=== PATIENT | male | born 1960 | race Caucasian/White ===

== ENCOUNTER 2018-03-11 13:40 | Emergency (ER) | payer BC ==
[~2018-03-11] VITALS: Ht 182.9 cm; Wt 89.0 kg
[2018-03-11 14:29] LABS: HEMOGLOBIN 15.3 G/DL (12.5-16.6); MCH 31.9 PG (29.0-34.0); MCHC 34.8 G/DL (30.0-36.0); MCV 91.7 FL (86-99); PLATELET COUNT 186 K/uL (156-360); RBC DIS.WIDTH-CV 12.3 % (11.8-14.6); RBC DIS.WIDTH-SD 41.5 % (39-53); WHITE BLOOD COUNT 5.4 K/uL (4.1-10.2)
[2018-03-11 14:37] LABS: CHLORIDE 106 mEq/L (99-109); POTASSIUM 4.1 mEq/L (3.7-5.4); SODIUM 140 mEq/L (136-147)
[2018-03-11 14:39] LABS: GLUCOSE 84 mg/dL (70-99)
[2018-03-11 14:42] LABS: SERUM ETHYL ALCOHOL < 10 mg/dL
[2018-03-11 14:43] LABS: CREATININE 0.8 mg/dL (0.6-1.3)
[2018-03-11 14:44] LABS: UREA NITROGEN (BUN) 14 mg/dL (9-23)
[2018-03-11 14:45] LABS: GFR ESTIMATE (CALCULATED) > 59 mL/min/ (58.99-99999)
[2018-03-11 14:56] LABS: COCAINE NEGATIVE (150 ng/mL); METHAMPHETAMINE NEGATIVE (500 ng/mL); PHENCYCLIDINE NEGATIVE (25 ng/mL); THC CANNABINOIDS NEGATIVE (50 ng/mL)
[2018-03-11 14:57] LABS: AMPHETAMINE NEGATIVE (500 ng/mL); BARBITURATES NEGATIVE (200 ng/mL); BENZODIAZEPINES NEGATIVE (150 ng/mL); BUPRENORPHINE NEGATIVE (10 ng/mL); METHADONE NEGATIVE (200 ng/mL); OPIATES (MORPHINE) NEGATIVE (100 ng/mL); OXYCODONE NEGATIVE (100 ng/mL); PROPOXYPHENE NEGATIVE (300 ng/mL); TRICYCLIC ANTIDEPRESSANTS NEGATIVE (300 ng/mL)
[2018-03-11 16:43] VITALS: BP 121/78
[2018-03-12] MEDS ORDERED: OMEPRAZOLE20 M2 PO (19:17)
[2018-03-12] MEDS ORDERED: BUPROPION XL150 MG PO (19:18)
[2018-03-12] MEDS ORDERED: CLONAZEPAM0.5 MG PO (19:19)
[2018-03-12] MEDS ORDERED: QUETIAPINE FUMA25 MG PO (19:20)
== END 2018-03-11 16:47 | disposition home or self-care (01) ==
LOC: EME 13:40
PROVIDERS: Emergency Medicine
DX: F32.9 Major depressive disorder, single episode, unspecified (principal); F43.23 Adjustment disorder with mixed anxiety and depressed mood
CPT/HCPCS: 80048; 85027; 90839; 99281; 99285; G0480

== ENCOUNTER 2018-03-12 16:59 | Emergency (ER) | payer BC ==
[~2018-03-12] VITALS: Ht 182.9 cm; Wt 89.9 kg
[2018-03-12 18:20] LABS: HEMATOCRIT 43.7 % (38.0-50.0); HEMOGLOBIN 14.9 G/DL (12.5-16.6); MCH 31.4 PG (29.0-34.0); MCHC 34.1 G/DL (30.0-36.0); MCV 92.2 FL (86-99); PLATELET COUNT 192 K/uL (156-360); RBC DIS.WIDTH-CV 12.4 % (11.8-14.6); RBC DIS.WIDTH-SD 42.1 % (39-53); RED BLOOD COUNT 4.74 M/uL (4.00-5.50); WHITE BLOOD COUNT 6.4 K/uL (4.1-10.2)
[2018-03-12 18:29] LABS: CHLORIDE 106 mEq/L (99-109); POTASSIUM 4.1 mEq/L (3.7-5.4); SODIUM 142 mEq/L (136-147)
[2018-03-12 18:31] LABS: GLUCOSE 83 mg/dL (70-99)
[2018-03-12 18:35] LABS: APPEARANCE CLEAR ((CLEAR)); BILIRUBIN NEGATIVE; BLOOD NEGATIVE; COLOR YELLOW ((YELLOW)); GLUCOSE (STRIP) NEGATIVE; KETONES NEGATIVE; LEUKOCYTES NEGATIVE; NITRITE NEGATIVE; PROTEIN (STRIP) NEGATIVE; SPECIFIC GRAVITY 1.019 (1.000-1.030); UROBILINOGEN 0.2 MG/DL (0.2-1.0)
[2018-03-12 18:35] LABS: GFR ESTIMATE (CALCULATED) > 59 mL/min/ (58.99-99999)
[2018-03-12 18:36] LABS: UREA NITROGEN (BUN) 12 mg/dL (9-23)
[2018-03-12 18:44] LABS: AMPHETAMINE NEGATIVE (500 ng/mL); BARBITURATES NEGATIVE (200 ng/mL); BENZODIAZEPINES NEGATIVE (150 ng/mL); BUPRENORPHINE NEGATIVE (10 ng/mL); COCAINE NEGATIVE (150 ng/mL); METHADONE NEGATIVE (200 ng/mL); METHAMPHETAMINE NEGATIVE (500 ng/mL); OPIATES (MORPHINE) NEGATIVE (100 ng/mL); OXYCODONE NEGATIVE (100 ng/mL); PHENCYCLIDINE NEGATIVE (25 ng/mL); PROPOXYPHENE NEGATIVE (300 ng/mL); THC CANNABINOIDS NEGATIVE (50 ng/mL); TRICYCLIC ANTIDEPRESSANTS NEGATIVE (300 ng/mL)
[2018-03-12] MEDS ORDERED: OMEPRAZOLE20 M2 PO (19:17)
[2018-03-12] MEDS ORDERED: BUPROPION XL150 MG PO (19:18)
[2018-03-12] MEDS ORDERED: CLONAZEPAM0.5 MG PO (19:19)
[2018-03-12] MEDS ORDERED: QUETIAPINE FUMA25 MG PO (19:20)
[2018-03-12 21:11] VITALS: BP 126/72
== END 2018-03-12 21:14 ==
LOC: EME 16:59
PROVIDERS: Nurse Practitioner Family
DX: F32.9 Major depressive disorder, single episode, unspecified (principal); R45.851 Suicidal ideations; F43.23 Adjustment disorder with mixed anxiety and depressed mood; K21.9 Gastro-esophageal reflux disease without esophagitis; Z88.0 Allergy status to penicillin
CPT/HCPCS: 80048; 81003; 85027; 90837; 90839; 99281; 99284